=== PATIENT | female | born 1980 | race Caucasian/White ===

== ENCOUNTER → 2017-08-17 | Outpatient (CLI) | payer OTHER ==
[2015-01-20 11:05] VITALS: BP 112/61
[~2017-08-17] MED LIST: CIPR500T PO; DESL5TAB PO; ESOM20CA PO; LISI1TAB3 PO; MEDR150D3 IM; ONDA4TAB12 PO; PROM25TA10 PO
--- NOTE | 2017-08-17 16:34 | RAD ---
DATE: 08/27/2017 EXAM: DIGITAL DIAGNOSTIC BILATERAL, BREAST BILATERAL HISTORY: Right breast lump COMPARISON: Baseline study This study was interpreted with the benefit of Computerized Aided Detection (CAD). The breast parenchyma is primarily fatty replaced. Breast parenchyma level density A. FINDINGS: A BB was placed on the skin surface over the area of palpable concern far laterally on the right. No underlying breast mass or abnormality is detected on the right. There is a 7 mm nodule in the left breast at the 12:00 location, as best seen on 3-D cc pj image #48. It is superficial in location. No other suspicious breast densities or microcalcifications are evident. Bilateral breast ultrasound, 08/17/2017: First we targeted the area of palpable concern in the lateral aspect of the right breast at the 9:00 location. Heterogeneous fibroglandular and fatty shadows are present. No breast mass is seen. We then targeted the left breast at the 12:00 location where a small superficial nodule was seen on the mammograms. No sonographic correlate could be identified. It demonstrates smooth margins on the majority of the mammogram images, favoring a benign etiology. IMPRESSION: 1. No mammographic or sonographic abnormality was identified in the area of palpable concern laterally on the right. Clinical surveillance is suggested. 2. Small mammographically visualized nodule in the left breast for which no sonographic correlate could be found. Mammographic surveillance beginning with left mammography in 6 months is suggested. BI-RADS CATEGORY: 3 PROBABLY BENIGN FINDING(S)-SHORT INTERVAL FOLLOW-UP SUGGESTED RECOMMENDED FOLLOW-UP: 6M 6 MONTH FOLLOW-UP PQRS compliance statement: Patient information was entered into a reminder system with a target due date for the next mammogram. Mammography is a sensitive method for finding small breast cancers, but it does not detect them all and is not a substitute for careful clinical examination. A negative mammogram does not negate a clinically suspicious finding and should not result in delay in biopsying a clinically suspicious abnormality. "Our facility is accredited by the [employer] Mammography [employer]."
== END | disposition home or self-care (01) ==
LOC: MAMMO 13:47
PROVIDERS: ATTEND Family Medicine
DX: N63.31 Unspecified lump in axillary tail of the right breast (principal); N63.21 Unspecified lump in the left breast, upper outer quadrant; C47.9 Malignant neoplasm of peripheral nerves and autonomic nervous system, unspecified; I10 Essential (primary) hypertension; K21.9 Gastro-esophageal reflux disease without esophagitis; F17.210 Nicotine dependence, cigarettes, uncomplicated; F12.10 Cannabis abuse, uncomplicated
CPT/HCPCS: 76641; 77066

== ENCOUNTER → 2018-04-21 | Outpatient (CLI) | payer OTHER ==
[2015-01-20 11:05] VITALS: BP 112/61
--- NOTE | 2018-04-21 14:22 | RAD ---
DATE: 04/21/2018 EXAM: DIGITAL DIAGNOSTIC LT HISTORY: Follow-up breast nodule COMPARISON: 08/17/2017 This study was interpreted with the benefit of Computerized Aided Detection (CAD). Breast Density: FATTY The breast parenchyma is primarily fatty replaced. Breast parenchyma level density A. FINDINGS: 2-D and 3-D tomosynthesis imaging of the left breast was performed. A small nodule is again noted at the 12:00 location in the left breast approximately 5 cm from the nipple. It measures approximately 7 mm. Its margins are microlobulated. In some views it appears slightly larger than on the previous study. Left breast ultrasound, 04/21/2018: A targeted ultrasound exam of the left breast was performed. At the 12:00 location approximately 5 cm from the nipple there is a small elongated nodule. It measures 6 x 5 x 3 mm. This corresponds in location to the mammographic abnormality. It is not a simple cyst. There are low level internal echoes. It is wider than tall. No internal color flow was defined. No definite posterior acoustic enhancement or shadowing is seen. While its sonographic features are suggestive of a complicated cyst or fibroadenoma, its mammographic margins are of some concern. No other abnormality was seen in its region. IMPRESSION: Mildly suspicious left breast nodule as described above. Ultrasound-guided biopsy is suggested for further evaluation. Note: The findings were given to the patient at the time of the exam by the certified cytotechnologist. The patient understands the recommendation for biopsy and will follow-up with the ordering physician. BI-RADS CATEGORY: 4 SUSPICIOUS ABNORMALITY- BIOPSY SHOULD BE CONSIDERED RECOMMENDED FOLLOW-UP: BIO BIOPSY RECOMMENDED PQRS compliance statement: Patient information was entered into a reminder system with a target due date for the next mammogram. Mammography is a sensitive method for finding small breast cancers, but it does not detect them all and is not a substitute for careful clinical examination. A negative mammogram does not negate a clinically suspicious finding and should not result in delay in biopsying a clinically suspicious abnormality. "Our facility is accredited by the [employer] Mammography [employer]."
== END | disposition home or self-care (01) ==
LOC: MAMMO 12:38
PROVIDERS: ATTEND Family Medicine
DX: N63.21 Unspecified lump in the left breast, upper outer quadrant (principal)
CPT/HCPCS: 76641; 77065

== ENCOUNTER → 2018-12-02 | Outpatient (CLI) | payer OTHER ==
[2015-01-20 11:05] VITALS: BP 112/61
[~2018-12-02] MED LIST changes: +LISI1TAB23 PO; -LISI1TAB3 PO
--- NOTE | 2018-12-03 10:25 | RAD ---
DATE: 12/03/2018. EXAM: DIGITAL SCREEN BILAT W/CAD HISTORY: Routine screening. COMPARISON: Previous mammogram from 2017 and April 2018. This study was interpreted with the benefit of Computerized Aided Detection (CAD). FINDINGS: Breast Density: SCATTERED The breast parenchyma shows scattered fibroglandular densities. Breast parenchyma level B. The skin and nipples are within normal limits. Left retroareolar biopsy clip. No suspicious calcifications, spiculated mass or area of architectural distortion. IMPRESSION: No mammographic evidence of malignancy. BI-RADS CATEGORY: 2 BENIGN FINDING(S) RECOMMENDED FOLLOW-UP: 12M 12 MONTH FOLLOW-UP PQRS compliance statement: Patient information was entered into a reminder system with a target due date for the next mammogram. Mammography is a sensitive method for finding small breast cancers, but it does not detect them all and is not a substitute for careful clinical examination. A negative mammogram does not negate a clinically suspicious finding and should not result in delay in biopsying a clinically suspicious abnormality. "Our facility is accredited by the [employer] Mammography [employer]."
== END | disposition home or self-care (01) ==
LOC: MAMMO 12:30
PROVIDERS: ATTEND Family Medicine
DX: Z12.31 Encounter for screening mammogram for malignant neoplasm of breast (principal); N64.89 Other specified disorders of breast
CPT/HCPCS: 77067

== ENCOUNTER 2019-11-07 10:31 | Emergency (ER) | payer SELFPAY ==
[~2019-11-07] VITALS: Ht 167.6 cm; Wt 82.0 kg
[2019-11-07 10:36] VITALS: BP 143/88
[2019-11-07] MEDS ORDERED: OFLO5DRO4 OS (11:19)
--- NOTE | 2019-11-07 11:20 | PHYS DOC ---
Past History Past Medical History: Constipation, Diverticulitis, Endometriosis, GERD, High Cholesterol, Hypertension, Ovarian Cyst, Other Additional Past Medical Histor: neurofibromatosis Past Surgical History: Hysterectomy, Other Additional Past Surgical Histo: left wrist surgery Smoking: Cigarettes, Less than 1pk/day Alcohol Use: Occasionally Drug Use: Marijuana General Adult EDM: Chief Complaint: EYE PROBLEMS HPI: HPI: 39-year-old female presents with bilateral eye redness and swelling. Patient reports started having an itching sensation 3 days ago. Reports woke up the next morning with her eyes crusted shut. Patient reports she has been trialing some [id number] eyedrops without improvement. Reports today presented to the ER due to worsening symptoms. Denies contact use. Denies foreign body sensation. Denies welding or grinding of metal. Review of Systems: Review of Systems: Constitutional: Denies fever or chills Eyes: Reports eye drainage and redness HENT: Denies nasal congestion or sore throat Respiratory: Denies cough or shortness of breath Cardiovascular: Denies chest pain or palpitations GI: Denies abdominal pain, nausea, or vomiting : Denies dysuria or hematuria Musculoskeletal: Denies back pain or joint pain Integument: Denies rash or skin lesions Neurologic: Denies headache, focal weakness or sensory changes Complete systems were reviewed and found to be within normal limits, except as documented in this note. Allergies: Allergies: Allergies Coded Allergies Type Severity Reaction Last Updated Verified egg Allergy Severe 01/01/15 Yes erythromycin base Allergy Severe 01/01/15 Yes oxycodone Allergy Intermediate Nausea 01/18/15 Yes acetaminophen Adverse Reaction Mild "I'm not allergic to tylenol." 01/20/15 Yes Physical Exam: PE: Constitutional: Well developed, well nourished, no acute distress, non-toxic appearance HENT: Normocephalic, atraumatic Eyes: PERRL, EOMI, conjunctiva injected bilaterally, bilateral chemosis noted, clear discharge Neck: Normal range of motion, no tenderness, supple Lungs & Thorax: No respiratory distress, equal chest rise and fall Skin: Warm, dry, no erythema, no rash Neurologic: Alert and oriented X 3, no focal deficits noted Psychologic: Affect normal, judgment normal Current Patient Data: Vital Signs: Vital Signs Date Time Temp Pulse Resp B/P (MAP) Pulse Ox O2 Delivery O2 Flow Rate FiO2 11/07/19 10:36 99.2 79 16 143/88 (106) 96 Room Air EKG: EKG: [] Radiology/Procedures: Radiology/Procedures: [] Course & Med Decision Making: Course & Med Decision Making Patient presents with bilateral chemosis. Denies contact use. Denies welding or grinding of metal. Symptomatic treatment provided with oral steroid. Prescription for antibiotic ophthalmic drops provided. Patient stable for discharge with outpatient follow-up with PCP/ophthalmology. Ophthalmology referral provided. Discussed findings and plan with patient, who acknowledges understanding and agreement. Dragon Disclaimer: Dragon Disclaimer: This electronic medical record was generated, in whole or in part, using a voice recognition dictation system. Departure Departure: Impression: Primary Impression: Chemosis of conjunctiva of both eyes Disposition: HOME/RESIDENCE PRIOR TO ADM Condition: STABLE Referrals: MARIELY ORONA MD (PCP) GILDARDO POMPA DO Patient Instructions: Conjunctivitis (Viral and Bacterial) Scripts Ofloxacin (Ofloxacin) 5 Ml Drops 2 DROP OS QID for Conjunctivitis for 5 Days, #5 ML 0 Refills Prov: LINDA HALL DO 11/07/19 Justification of Admission: Justification of Admission: Justification of Admission Dx: N/A LINDA HALL DO Nov 07, 2019 11:20
[2019-11-07] MEDS ORDERED: DEXAMETHASONE 4 MG TABLET PO ONE (11:30)
== END 2019-11-07 11:32 | disposition home or self-care (01) ==
LOC: ER 10:31
DX: H11.423 Conjunctival edema, bilateral (principal); K21.9 Gastro-esophageal reflux disease without esophagitis; E78.00 Pure hypercholesterolemia, unspecified; I10 Essential (primary) hypertension; F17.210 Nicotine dependence, cigarettes, uncomplicated; Z88.5 Allergy status to narcotic agent; Z88.8 Allergy status to other drugs, medicaments and biological substances; Z88.1 Allergy status to other antibiotic agents; Z91.012 Allergy to eggs
CPT/HCPCS: 99283; J8540

== ENCOUNTER → 2020-02-03 | Outpatient (CLI) | payer OTHER ==
[~2020-02-03] MED LIST changes: +OFLO5DRO4 OS
--- NOTE | 2020-02-03 18:50 | RAD ---
DATE: 02/03/2020 EXAM: DIGITAL SCREEN BILAT W/CAD HISTORY: Screening COMPARISON: 12/02/2018, 08/18/2019 This study was interpreted with the benefit of Computerized Aided Detection (CAD). Breast Density: FATTY The breast parenchyma is primarily fatty replaced. Breast parenchyma level density A. FINDINGS: There is a biopsy clip in the left breast. No mass, suspicious calcification, or architectural distortion in either breast. IMPRESSION: No evidence of malignancy. BI-RADS CATEGORY: 2 BENIGN FINDING(S) RECOMMENDED FOLLOW-UP: 12M 12 MONTH FOLLOW-UP PQRS compliance statement: Patient information was entered into a reminder system with a target due date for the next mammogram. Mammography is a sensitive method for finding small breast cancers, but it does not detect them all and is not a substitute for careful clinical examination. A negative mammogram does not negate a clinically suspicious finding and should not result in delay in biopsying a clinically suspicious abnormality. "Our facility is accredited by the [employer] Mammography Program."
== END ==
LOC: MAMMO 11:25
PROVIDERS: ATTEND Family Medicine
DX: Z12.31 Encounter for screening mammogram for malignant neoplasm of breast (principal)
CPT/HCPCS: 77067

== ENCOUNTER → 2021-02-25 | Outpatient (CLI) | payer OTHER ==
[~2021-02-25] MED LIST changes: -CIPR500T PO; +CIPR500T2 PO; -LISI1TAB23 PO; +LISI1TAB35 PO
--- NOTE | 2021-02-25 16:01 | RAD ---
BILATERAL DIGITAL SCREENING 2-D MAMMOGRAM INDICATION: Routine screening. COMPARISON: 02/03/2020, 12/02/2018, 08/17/2017 Interpretation was made using CAD. FINDINGS: Breast Density: The breasts are almost entirely fatty. RIGHT BREAST: No suspicious masses, calcifications or areas of architectural distortion are seen. LEFT BREAST: No suspicious masses, calcifications or areas of architectural distortion are seen. Uppe r breast anterior third S-shaped biopsy marker clip. IMPRESSION: 1. No imaging evidence of malignancy. ASSESSMENT: BI-RADS 2: Benign. RECOMMENDATION: Routine annual screening mammogram. The facility will notify the patient of the results via mail. Patient information will be entered int o the mammography reminder system with a target recall date for the next mammogram. A reminder letter will be generated by the facility. Electronically signed by: Johnny Carcamo MD (02/25/2021 3:58 PM) [id number]
== END ==
LOC: MAMMO 13:07
PROVIDERS: ATTEND Family Medicine
DX: Z12.31 Encounter for screening mammogram for malignant neoplasm of breast (principal)
CPT/HCPCS: 77067